=== PATIENT | male | born 1990 ===

== ENCOUNTER 2022-08-07 14:48 | Emergency (ER) | payer MEDICAID, SELFPAY ==
--- NOTE | ~2022-08-07 | CT_ITS ---
EXAMINATION: CT HEAD WITHOUT CONTRAST CLINICAL INFORMATION: Change in vision. Headache. COMPARISON: None available. TECHNIQUE: Contiguous axial imaging was performed from the skull base to vertex without intravenous administration of contrast. This CT examination was performed using dose optimization techniques as appropriate, variously including the following: *Automated exposure control *Adjustment of mA and/or kV according to patient size (this includes techniques or standardized protocols for targeted exams where dose is matched to indication/reason for exam; i.e. extremities or head) *Use of iterative reconstruction technique DLP: 637 mGy-cm FINDINGS: Ventricles and sulci are normal. There is no evidence of acute intracranial hemorrhage, midline shift or mass effect. Ridley to white matter differentiation is well preserved. No evidence of acute territorial infarction. No evidence of abnormal extra-axial fluid collection. No definite abnormal parenchymal attenuation is noted. Osseous calvarium and calvarial soft tissues are unremarkable. Visualized paranasal sinuses are well-aerated. Bilateral mastoid air cells and middle ear cavities are well-aerated. CT/CT head/brain wo IV con IMPRESSION: No acute intracranial pathology.
[2022-08-07 14:53] VITALS: BP 144/107; PULSE 81; RESP 18; TEMP 36.3; O2SAT 88; BMI 29.3
--- NOTE | 2022-08-07 14:56 | ECG_ITS ---
Test Reason : chest pain Blood Pressure : / mmHG Vent. Rate : 079 BPM Atrial Rate : 079 BPM P-R Int : 140 ms QRS Dur : 090 ms QT Int : 342 ms P-R-T Axes : 017 -05 -01 degrees QTc Int : 392 ms Artifact in tracing Normal sinus rhythm Minimal voltage criteria for LVH, may be normal variant ( R in aVL ) Borderline ECG No previous ECGs available Referred By: Eriberto Lewis Electronically Signed By:MARTINA SHARMA
--- NOTE | 2022-08-07 14:57 | ED_ITS ---
HPI - General Adult General Chief complaint: General Medical Stated complaint: abnormal ekg Time Seen by Provider: 08/07/22 16:14 Source: patient Mode of arrival: ambulatory Limitations: no limitations History of Present Illness HPI narrative: 32 year old male with past medical history of bulimia for 6 years presents to the ED with worsening substernal burning/ stabbing chest pain for 5 months worsening over the past 3 weeks patient reports that it is worse after he eats greasy foods. He reports the pain is worse when he takes a deep breath and describes the pain is a burning sensation. Sometimes he feels like his heart is beating out of his chest. Patient additionally endorses left arm pain that occurs with episodes. Additionally patient reports he has been having issues with his left eye reporting he seeing floaters and flashing lights and at times having headache not present at this time though. Patient was seen in urgent care and sent to the ED for an abnormal EKG , unsure of abnormality however. No LOC, dysphagia, dizziness, nausea, vomiting, diarrhea, SOB, headache, abd pain, changes in urinarion Related Data Previous Rx's Medication Instructions Recorded aluminum-mag hydroxide-simethicone 5 ml PO 5XD PRN dyspepsia #355 mL 08/07/22 200 mg-200 mg-20 mg/5 mL oral susp (Maalox Advanced) ketorolac 10 mg tablet 10 mg PO TID PRN pain 5 days #15 08/07/22 tabs Allergies Allergy/AdvReac Type Severity Reaction Status Date / Time No Known Allergies Allergy Verified 08/07/22 14:52 Review of Systems Review of Systems: Constitutional : + intentional weight loss, No Fever, No Chills, No Fatigue, No Malaise ENT/Mouth : No sore throat, No Rhinorrhea, No dysphagia Eyes: No Eye Pain, , No Swelling, No Redness Cardiovascular : + Chest Pain, No SOB, No Dyspnea on Exertion, No Orthopnea, No Edema, + Palpitations Respiratory : No Cough, No Sputum, No Wheezing Gastrointestinal : No Nausea, No Vomiting, No Diarrhea, No Constipation, No abdominal Pain, No Hematochezia, No Melena Genitourinary : No Dysuria, No Urinary Frequency, No Hematuria, Musculoskeletal : No joint pain, No Myalgias, No Joint Swelling Skin : No Skin Lesions, No rash Neuro : No Weakness, No Numbness, No Dizziness, No Headache Psych : No Anxiety/Panic, No Depression All other systems reviewed and are negative Yes all other systems are reviewed and are negative [facility] Past Medical History Attestation statement: The following information was validated with the patient. Source: old records reviewed and nursing notes reviewed Social History Social History Advance Directives: No Advance Directives Information Provided: No Physical Exam ED Vital Signs: Vital Signs - 24 hr 08/07/22 14:53 08/07/22 16:16 Temperature 97.3 F 98.0 F Pulse Rate 81 77 Respiratory Rate 18 16 Blood Pressure 144/107 H 139/92 H Pulse Oximetry 88 L 98 Oxygen Delivery Method Room Air Room Air BMI result Body Mass Index 29.3 vss Appearance: Alert.? Oriented X3.? No acute distress.? Head: Normocephalic, atraumatic, no step-offs or deformities Eyes: Pupils equal, round and reactive to light.? Extraocular movements intact and pain-free. Neck: Normal inspection.? Neck supple.? CVS: Normal heart rate and rhythm.? Pulses normal.? Respiratory: No respiratory distress.? Breath sounds normal.? Abdomen: Soft and nontender.? Skin: Skin warm and dry.? Normal skin color.? Normal skin turgor.? Extremities: No lower extremity edema.? No calf ttp. 5/5 strength to bilateral upper and lower extremities Neuro: Oriented X 3.? No motor deficit.? No sensory deficit. CN 2-12 intact . Negative Romberg and pronator drift, normal [id number], [id number], steady tandem gait with normal coordination. Normal rapid alternating movements. NIHSS-0 Course Course Course Narrative: 32-year-old male presents for evaluation of an abnormal EKG with chest pain. He went to urgent care initially and was referred ER due to abnormal EKG. His EKG with him shows T-wave inversions in lead 3 with no previous for comparison. Plan for labs and repeat EKG Reevaluation(s) Reevaluation #1: CBC within normal limits. Chemistry with no acute electrolyte abnormalities requiring intervention. Troponin negative, EKG nonischemic, 2nd troponin also negative. Unlikely ACS. Patient PERC negative and with negative D-dimer unlikely PE. At this time patient to be discharged home likely anxiety versus GERD, will have him follow up with PCP and Cardiology. Educated patient on diagnosis and treatment plan, answered all question, patient verbalizes understanding. At this time patient will be discharged home, advised to return with new or worsening symptoms. Educated on worrisome signs and symptoms and when to return. At this time I feel comfortable discharge home.. Time: 19:25 Medical Decision Making Medical Decision Making [facility] Narrative: 1808 32 year old male presents with worsening CP that radiates to the left arm for 5 months worsening over the past 3 weeks. Additionally endorses visual changes in the left eye w/ occasional headaches, not present now. A significant personal or family cardiac history. PE: Normal heart rate and rhythm.? Pulses normal.?Oriented X 3.? No motor deficit.? No sensory deficit. CN 2-12 intact. Cerebellar intact. Plan: Basic labs, repeat EKG, troponins, D-dimer, imaging Ddx: Most likely GERD. Other differentials include palpitations, anxiety. Unlikely ACS or PE, PERC negative. Unlikley ICH,stroke, posterior stroke, meningitis, encephalitis possible typical headache vs migrane Differential Diagnosis Differential Diagnoses: The differential diagnosis associated with the presentation includes Most likely GERD. Other differentials include palpitations, anxiety. Unlikely ACS or PE, PERC negative. Unlikley ICH,stroke, posterior stroke, meningitis, encephalitis possible typical headache vs migrane Admission/Observation Consideration of admission/observation: Escalation of care including admission/observation considered un tarik Lab Data [facility] Lab Attestation statement: I reviewed the patient's lab results. 08/07/22 15:10 08/07/22 15:10 Labs: Lab Results 08/07/22 08/07/22 08/07/22 Range/Units 15:10 15:10 15:10 WBC 7.4 (4.8-10.8) X10*3/uL RBC 5.24 (4.60-5.80) X10*6/uL Hgb 16.2 (14.0-18.0) g/dl Hct 45.5 (42.0-52.0) % MCV 86.8 (80.0-98.0) fL MCH 30.9 (27.0-33.0) pg MCHC 35.6 (31.0-36.0) g/dl RDW 12.2 (11.0-16.0) % Plt Count 309 (160-400) X10*3/uL MPV 10.2 (9.4-12.4) fL Immature Gran % (Auto) 0.3 (0.0-0.4) % Neut % (Auto) 56.7 (45-73) % Lymph % (Auto) 36.3 (20-40) % Briscoe % (Auto) 5.5 (2-11) % Eos % (Auto) 0.3 (0-4) % Baso % (Auto) 0.9 (0-2) % Lymph # (Auto) 2.7 (1.2-4.9) X10*3/uL Briscoe # (Auto) 0.4 (0.1-1.2) X10*3/uL Eos # (Auto) 0.0 (0.0-0.4) X10*3/uL Baso # (Auto) 0.1 (0.0-0.2) X10*3/uL Abs Immat Gran (auto) 0.02 (0.00-0.03) X10*3/uL Absolute Neuts (auto) 4.2 (2.0-8.3) x10*3/uL Absolute Nucleated RBC 0.000 (0.0-0.012) X10*3/uL Nucleated RBC % (auto) 0.0 (0.0-0.2) /100WBC PT 10.7 (10.0-13.1) SEC INR 0.9 (0.9-1.1) APTT 30.1 (26.0-36.4) SEC D-Dimer High Sensitivty < 150 NG/ML Sodium 140 (135-145) mmol/L Potassium 4.0 (3.3-5.1) mmol/L Chloride 105 (96-108) mmol/L Carbon Dioxide 28 (22-29) mmol/L Anion Gap 11 L (12-20) BUN 11 (9-16) mg/dL Creatinine 1.01 (0.5-1.4) mg/dL Estim Creat Clear Calc 98.8 Estimated GFR > 60 Random Glucose 97 (60-115) mg/dL Calcium 9.7 (8.4-10.2) mg/dL Magnesium 2.2 (1.6-2.6) mg/dL Total Bilirubin 0.8 (0.0-1.0) mg/dL AST 36 (5-37) U/L ALT 65 H (0-40) U/L Alkaline Phosphatase 77 (39-117) U/L Troponin I High Sens (<3.5-35.0) ng/L Total Protein 7.9 (6.5-8.0) g/dL Albumin 4.7 (3.5-5.0) g/dL Lipase 30 (8-78) U/L 08/07/22 08/07/22 Range/Units 15:10 18:31 WBC (4.8-10.8) X10*3/uL RBC (4.60-5.80) X10*6/uL Hgb (14.0-18.0) g/dl Hct (42.0-52.0) % MCV (80.0-98.0) fL MCH (27.0-33.0) pg MCHC (31.0-36.0) g/dl RDW (11.0-16.0) % Plt Count (160-400) X10*3/uL MPV (9.4-12.4) fL Immature Gran % (Auto) (0.0-0.4) % Neut % (Auto) (45-73) % Lymph % (Auto) (20-40) % Briscoe % (Auto) (2-11) % Eos % (Auto) (0-4) % Baso % (Auto) (0-2) % Lymph # (Auto) (1.2-4.9) X10*3/uL Briscoe # (Auto) (0.1-1.2) X10*3/uL Eos # (Auto) (0.0-0.4) X10*3/uL Baso # (Auto) (0.0-0.2) X10*3/uL Abs Immat Gran (auto) (0.00-0.03) X10*3/uL Absolute Neuts (auto) (2.0-8.3) x10*3/uL Absolute Nucleated RBC (0.0-0.012) X10*3/uL Nucleated RBC % (auto) (0.0-0.2) /100WBC PT (10.0-13.1) SEC INR (0.9-1.1) APTT (26.0-36.4) SEC D-Dimer High Sensitivty NG/ML Sodium (135-145) mmol/L Potassium (3.3-5.1) mmol/L Chloride (96-108) mmol/L Carbon Dioxide (22-29) mmol/L Anion Gap (12-20) BUN (9-16) mg/dL Creatinine (0.5-1.4) mg/dL Estim Creat Clear Calc Estimated GFR Random Glucose (60-115) mg/dL Calcium (8.4-10.2) mg/dL Magnesium (1.6-2.6) mg/dL Total Bilirubin (0.0-1.0) mg/dL AST (5-37) U/L ALT (0-40) U/L Alkaline Phosphatase (39-117) U/L Troponin I High Sens 2.8 < 2.7 (<3.5-35.0) ng/L Total Protein (6.5-8.0) g/dL Albumin (3.5-5.0) g/dL Lipase (8-78) U/L Independent Interpretation I performed an independent interpretation of an: EKG (Ventricular rate of 79, OK normal, QRS normal, QT/QTC normal. EKG with normal sinus rhythm and minimal voltage criteria for LVH, no ST elevations or inversions concerning for ischemia.) and CT Scan (unremarkable ) Radiology Impression Discussion of test interpretation with radiology: I have reviewed the radiologist's reading. External Record Review External record reviewed: Inpatient record, Office record, Outpatient record, Prior outpatient labs, Prior outpatient radiology, Primary care record and Outside ED record Prescription Management I considered prescription management with: Pain Medication Core Measures AMI core measures followed: Yes Measure exclusions: not indicated Discharge Plan Discharge Clinical Impression: Chest pain, Headache Patient Disposition: Home, Self-Care Instructions: Chest Pain (DC), Acute Headache (ED) Additional Instructions: Take your medications as prescribed. If you were prescribed antibiotics today, it is important that you take your medication to their entirety, do not skip any doses, do not finish them early. Follow-up with your primary care provider this week. Please follow-up with ca rdiology. Return to the emergency department with new or worsening symptoms. Such as fevers, chills, chest pain, shortness of breath, nausea, vomiting, dizziness, headache, vision changes, lethargy, weakness, facial asymmetry, changes in speech. In case of emergency call 911 Prescriptions: New ketorolac 10 mg tablet 10 mg PO TID PRN (Reason: pain) 5 Days Qty: 15 0RF alum-mag hydroxide-simeth [Maalox Advanced] 200-200-20 mg/5 mL suspension 5 ml PO 5XD PRN (Reason: dyspepsia) Qty: 355 0RF Rx Instructions: administer between meals and at bedtime Referrals: Physician,None [Primary Care Provider] - 2 days Stand Alone Forms: Work/School Release
[2022-08-07 15:14] LABS: MANUAL DIFF FLAG NO
[2022-08-07 15:16] LABS: Basophils Absolute Auto 0.1 X10*3/uL (0.0-0.2); Basophils Percent Auto 0.9 % (0-2); Eosinophils Percent Auto 0.3 % (0-4); Hematocrit 45.5 % (42.0-52.0); Hemoglobin 16.2 g/dl (14.0-18.0); Imm Gran Abs Auto 0.02 X10*3/uL (0.00-0.03); Imm Gran Pct Auto 0.3 % (0.0-0.4); Lymphocytes Absolute Auto 2.7 X10*3/uL (1.2-4.9); Lymphocytes Percent Auto 36.3 % (20-40); Mean Corpuscular HGB Conc 35.6 g/dl (31.0-36.0); Mean Corpuscular Hemoglobin 30.9 pg (27.0-33.0); Mean Corpuscular Volume 86.8 fL (80.0-98.0); Mean Platelet Volume 10.2 fL (9.4-12.4); Monocytes Absolute Auto 0.4 X10*3/uL (0.1-1.2); Monocytes Percent Auto 5.5 % (2-11); Neutrophils Absolute Auto 4.2 x10*3/uL (2.0-8.3); Neutrophils Percent Auto 56.7 % (45-73); Platelet Count 309 X10*3/uL (160-400); Red Blood Count 5.24 X10*6/uL (4.60-5.80); Red Cell Distribution Width 12.2 % (11.0-16.0); White Blood Count 7.4 X10*3/uL (4.8-10.8)
[2022-08-07 15:28] LABS: INTERNATIONAL NORM RATIO 0.9 (0.9-1.1); Prothrombin Time 10.7 SEC (10.0-13.1)
[2022-08-07 15:30] LABS: Alanine Aminotransferase 65 U/L (0-40); Albumin Level 4.7 g/dL (3.5-5.0); Alkaline Phosphatase 77 U/L (39-117); Anion Gap 11 (12-20); Aspartate Amino Transferase 36 U/L (5-37); Bilirubin Total 0.8 mg/dL (0.0-1.0); Blood Urea Nitrogen 11 mg/dL (9-16); Calcium 9.7 mg/dL (8.4-10.2); Carbon Dioxide 28 mmol/L (22-29); Chloride 105 mmol/L (96-108); Creatinine Clr Calc Pharmacy 98.8; Estimated Glomerular Filt Rate > 60; Glucose Random 97 mg/dL (60-115); Lipase 30 U/L (8-78); Magnesium 2.2 mg/dL (1.6-2.6); Partial Thromboplastin Time 30.1 SEC (26.0-36.4); Sodium 140 mmol/L (135-145); Total Protein 7.9 g/dL (6.5-8.0)
[2022-08-07 15:37] LABS: Troponin-I High Sensitivity 2.8 ng/L (<3.5-35.0)
[2022-08-07 16:16] VITALS: BP 139/92; PULSE 77; RESP 16; TEMP 36.7; O2SAT 98
[2022-08-07 17:47] LABS: D Dimer High Sensitivity < 150 NG/ML
[2022-08-07 19:20] LABS: Troponin-I High Sensitivity < 2.7 ng/L (<3.5-35.0)
[2022-08-07] MEDS: Ketorolac Tromethamine 15 MG/ML VIAL 30 MG IM (19:24)
[2022-08-07] MEDS: Magnesium Hydrox/Alum Hydrox 30 ML ORAL.SUSP PO (19:24)
== END 2022-08-07 19:33 | disposition home or self-care (01) ==
PROVIDERS: Physician Assistant; Emergency Provider Internal Medicine
DX: R07.9 Chest pain, unspecified (principal); R51.9 Headache, unspecified
CPT/HCPCS: 36415; 70450; 80053; 83690; 83735; 84484; 85025; 85379; 85610; 85730; 93005; 96372; 99284; J1885